=== PATIENT | male | born 1995 | race Caucasian/White ===

== ENCOUNTER 2017-08-06 12:54 | Emergency (ER) | payer SELFPAY ==
[~2017-08-06] VITALS: Ht 165.1 cm; Wt 54.2 kg
[~2017-08-06 12:54] MED LIST: FLUOXETINE HCL20 MG PO; LORAZEPAM0.5 MG PO
[2017-08-06 15:37] VITALS: BP 124/75
== END 2017-08-06 15:43 | disposition home or self-care (01) ==
LOC: EME 12:54
DX: N52.9 Male erectile dysfunction, unspecified (principal); F32.9 Major depressive disorder, single episode, unspecified; F41.9 Anxiety disorder, unspecified
CPT/HCPCS: 99281; 99283